=== PATIENT | female | born 1975 | race Caucasian/White ===

== ENCOUNTER 2017-11-16 10:24 | Day surgery (SDC) | payer MEDICAID ==
[2017-11-16 11:36] LABS: ADD MAN DIFF? NO
[2017-11-16 11:40] LABS: WHITE BLOOD COUNT 7.4 10^3/ul (4.8-10.8)
[2017-11-16 11:40] LABS: BASOPHILS % 0.4 % (0.0-2.0); EOSINOPHILS # 0.1 10^3/ul (0.0-0.5); EOSINOPHILS % 1.2 % (0.0-7.0); HEMATOCRIT 40.1 % (37.0-47.0); HEMOGLOBIN 13.3 g/dl (12.0-16.0); LYMPHOCYTES # 1.6 10^3/ul (0.8-2.9); LYMPHOCYTES % 21.3 % (15.0-51.0); MEAN CORPUSCULAR HGB CONC 33.2 g/dl (32.0-37.0); MEAN CORPUSCULAR VOLUME 87.4 fl (82.0-101.0); MONOCYTE # 0.4 10^3/ul (0.3-0.9); MONOCYTES % 5.3 % (0.0-11.0); NEUTROPHIL # 5.3 10^3/ul (1.6-7.5); NEUTROPHILS % 71.4 % (39.0-77.0); PLATELET COUNT 201 10^3/UL (140-415); RED BLOOD COUNT 4.59 10^6/ul (4.20-5.40); RED CELL DISTRIBUTION WIDTH 12.3 % (11.5-14.5)
[2017-11-16 11:53] LABS: ADD UMIC YES; UR ASCORBIC ACID NEGATIVE (NEGATIVE); UR BACTERIA FEW /HPF (NONE SEEN); UR BILIRUBIN (Dip) NEGATIVE (NEGATIVE); UR BLOOD (Dip) NEGATIVE (NEGATIVE); UR CLARITY CLOUDY (CLEAR); UR COLOR YELLOW (YELLOW); UR GLUCOSE (Dip) NEGATIVE (NEGATIVE); UR KETONES (Dip) NEGATIVE (NEGATIVE); UR LEUKOCYTE ESTERASE (Dip) 2+ Leu/ul (NEGATIVE); UR MUCUS FEW /HPF (NONE SEEN); UR NITRITE (Dip) NEGATIVE (NEGATIVE); UR RBC 4 /HPF (0-5); UR SPECIFIC GRAVITY (Dip) 1.018 (1.003-1.030); UR SQUAMOUS EPITHELIAL CELL MANY /HPF (FEW); UR TOTAL PROTEIN (Dip) NEGATIVE (NEGATIVE); UR UROBILINOGEN (Dip) NEGATIVE (NEGATIVE); UR WBC 10 /HPF (0-5)
[2017-11-16 12:00] LABS: ALANINE AMINOTRANSFERASE 43 IU/L (13-69); ALBUMIN 4.6 g/dl (3.3-4.9); ALBUMIN/GLOBULIN RATIO 1.27; ALKALINE PHOSPHATASE 117 IU/L (42-121); ANION GAP 15 (8-16); ASPARTATE AMINO TRANSFERASE 25 IU/L (15-46); BILIRUBIN,INDIRECT 0.3 mg/dl (0-1.1); BILIRUBIN,TOTAL 0.3 mg/dl (0.2-1.3); CARBON DIOXIDE 26 mmol/L (21-31); CHLORIDE 104 mmol/L (97-110); GLUCOSE 95 mg/dl (70-220); TOTAL PROTEIN 8.2 g/dl (6.1-8.1)
[2017-11-16 12:06] LABS: BLOOD UREA NITROGEN 8 mg/dl (7-20); CALCIUM 9.1 mg/dl (8.4-10.2); CREATININE 0.62 mg/dl (0.44-1.00); POTASSIUM 4.2 mmol/L (3.5-5.1); SODIUM 141 mmol/L (135-144)
[2017-11-16 12:15] LABS: INR 1.07; PARTIAL THROMBOPLASTIN TIME 29.5 Sec (25.0-35.0); PT RATIO 1.1
[2017-11-16] MEDS: BUPIVACAINE 0.5%/EPI (SDV) 30 ML INJ INJ (12:30)
[2017-11-16] MEDS ORDERED: MIDAZOLAM 1 MG/ML 2 ML INJ (12:31)
[2017-11-16] MEDS ORDERED: ROCURONIUM 50 MG INJ (12:31)
[2017-11-16] MEDS ORDERED: FENTAnyl 50 MCG/ML VIAL (12:31)
[2017-11-16] MEDS ORDERED: PROPOFOL 20 ML ×2 (12:31→13:30)
[2017-11-16] MEDS ORDERED: SUCCINYLCHOLINE CHLORIDE 100 MG/5 ML SYG IV ×2 (12:31→13:30)
[2017-11-16] MEDS ORDERED: DEXAMETHASONE 4 MG/ML 1 ML INJ (13:10)
[2017-11-16] MEDS ORDERED: ONDANSETRON 4 MG INJ (13:10)
[2017-11-16] MEDS ORDERED: FAMOTIDINE 20 MG INJ (13:10)
[2017-11-16] MEDS ORDERED: PHENYLephrine 10 MG INJ (13:19)
[2017-11-16] MEDS ORDERED: CEFAZOLIN 1 GM INJ (13:25)
[2017-11-16] MEDS ORDERED: SUGAMMADEX SODIUM 200 MG/2 ML VIAL IV (13:39)
[2017-11-16] MEDS ORDERED: EPHEDrine SULFATE 50 MG/5 ML SYG (13:41)
[2017-11-16] MEDS ORDERED: KETOROLAC 30 MG INJ (13:44)
[2017-11-16] MEDS ORDERED: LACTATED RINGER'S 1,000 ML IV (13:53)
[2017-11-16] MEDS ORDERED: morphine 2 MG INJ IV (14:00)
[2017-11-16] MEDS ORDERED: OXYCODONE/ACETAMINOPHEN (5/325) TAB PO ×3 (14:00→14:30)
[2017-11-16] MEDS ORDERED: ACETAMINOPHEN 325 MG TAB PO (14:00)
[2017-11-16] MEDS ORDERED: IBUPROFEN 600 MG TAB PO (14:00)
[2017-11-16] MEDS ORDERED: PROCHLORPERAZINE 10 MG INJ IV (14:30)
[2017-11-16] MEDS ORDERED: FENTAnyl 50 MCG/ML VIAL IV (14:30)
[2017-11-16] MEDS ORDERED: DIPHENHYDRAMINE 50 MG INJ IV (14:30)
[2017-11-16] MEDS ORDERED: ONDANSETRON 4 MG INJ IV (14:30)
[2017-11-16] MEDS ORDERED: HYDROmorphONE (0.2 MG/ML) 10ML SYG IV (14:30)
[2017-11-16] MEDS: ONDANSETRON 4 MG INJ IV (14:34)
[2017-11-16] MEDS: MEPERIDINE 25 MG INJ IV (14:34)
== END 2017-11-16 17:05 | disposition home or self-care (01) ==
LOC: SDS 10:24
DX: Z30.2 Encounter for sterilization (principal)
CPT/HCPCS: 58670; 80053; 81001; 85025; 85610; 85730; 86850; 86900; 86901